=== PATIENT | female | born 1950 | race Caucasian/White ===

== ENCOUNTER 2020-06-12 09:21 | Outpatient (CLI) | payer MEDICARE, SELFPAY ==
--- NOTE | 2020-06-12 09:27 | MM_ITS ---
WS: [id number] BILATERAL DIGITAL SCREENING MAMMOGRAPHY WITH CAD CLINICAL INFORMATION: SCREENING HISTORY: Screening mammogram. No current complaints. COMPARISON: TECHNIQUE: Bilateral CC and MLO views. FINDINGS: Scattered fibroglandular densities bilaterally. No suspicious focal mass, asymmetry, calcifications, or architectural distortion. No evidence of malignancy. Stable punctate calcifications left breast. S table bilateral ovoid nodules previously demonstrated to represent cysts. MM/[place] [id number] IMPRESSION: BI-RADS: 2-Benign FOLLOW UP: 1 Year Follow-up Recommend return to annual screening mammography.
--- NOTE | 2020-06-12 14:18 | XR_ITS ---
WS: [id number] SCREENING DEXA SCAN [facility] CLINICAL INFORMATION: POST MENOPAUSAL COMPARISON: None. FINDINGS: The L1-L4 bone mineral density measures 1.786 g/cm2. This corresponds to a T score score of 5.0 and Z score of 5.8. Left femoral neck bone mineral density measures 1.184 g/cm2. This corresponds to a T score of 1.4 and Z score of 2.2. Right femoral neck bone mineral density measures 1.035 g/cm2. This corresponds to a T score 0.2of and Z score of 1.1. Mean femoral neck bone mineral density measures 1.110 g/cm2. This corresponds to a T score of 0.8 and Z score of 1.6. XR/XR DEXA axial skeleton* [id number] IMPRESSION: Normal bone mineralization. Patient's FRAX calculated 10 year probability for major osteoporotic fracture i s 7.4 % and osteoporotic hip fracture is 0.5%.
== END 2020-06-12 09:22 | disposition home or self-care (01) ==
LOC: RADSHAW 09:26
PROVIDERS: Family Provider Nurse Practitioner; PCP Nurse Practitioner; Visit Provider Nurse Practitioner
DX: Z12.31 Encounter for screening mammogram for malignant neoplasm of breast (principal); Z78.0 Asymptomatic menopausal state
CPT/HCPCS: 77067; 77080

== ENCOUNTER 2021-09-23 08:09 | Outpatient (CLI) | payer MEDICARE, SELFPAY ==
--- NOTE | 2021-09-23 08:16 | MM_ITS ---
WS: [id number] SCREENING 3D TOMOSYNTHESIS DIGITAL MAMMOGRAM WITH CAD HISTORY: SCREENING COMPARISON: 04/02/2018 ultrasound, 06/12/2020, 04/28/2019 and 03/16/2018 Bilateral CC and MLO views submitted. Computer aided detection analyzed. Breast composition: There are scattered areas of fibroglandular density. There is a well-circumscribe d mass measuring 10 x 11 mm in the anterior RIGHT breast. This mass is within the inferolateral quadr ant of the RIGHT breast. This is just below the nipple near 8:00. This mass has been present on prior studies but is larger today. MM/[place] [id number] IMPRESSION: BI-RADS: 0-Incomplete: Need additional imaging evaluation FOLLOW UP: Need Additional Imaging RIGHT breast ultrasound focused on the inferolateral quadrant. Focal nodule kirk r 8:00 has increased in size since the prior examination. This may be an enlarg ing cyst but should be further evaluated due to its increase in size.
== END 2021-09-23 08:10 | disposition home or self-care (01) ==
LOC: RADSHAW 08:13
PROVIDERS: PCP Nurse Practitioner; Visit Provider Nurse Practitioner
DX: Z12.31 Encounter for screening mammogram for malignant neoplasm of breast (principal)
CPT/HCPCS: 77063; 77067

== ENCOUNTER 2021-10-01 07:32 | Outpatient (CLI) | payer MEDICARE, SELFPAY ==
--- NOTE | 2021-10-01 08:14 | US_ITS ---
WS: [id number] ULTRASOUND RIGHT BREAST HISTORY: UNSPECIFIED LUMP IN UNSPECIFIED BREAST , RIGHT BREAST NODULE COMPARISON: 04/02/2018, mammogram 09/23/2021. TECHNIQUE: 2-D and Doppler. Ultrasound directed to the RIGHT breast at 8 o'clock. Approximately 1 cm from the nipple at 8:00 is a very minimally complex hypoechoic mass measuring 1.1 x 0.8 x 0.7 cm. There is through transmission. This does correspond in location and size to the mammographic abnormality. There is an additional daphne y small hypoechoic nodule at 8:00 with a maximum diameter of 0.5 cm. US/US breast RT limited* [id number] IMPRESSION: BI-RADS: 3-Probably Benign FOLLOW-UP: 6 Month Follow-up Recommend 6 month ultrasound follow-up of the mildly complex cyst in the RIGHT breast at 8:00. This larger cyst measuring 1.1 x 0.8 x 0.7 cm has increased in size since 2018. Minimally complex therefore recommend 6 month follow-up.
== END 2021-10-01 07:33 | disposition home or self-care (01) ==
LOC: RAD 07:35
PROVIDERS: PCP Nurse Practitioner; Visit Provider Nurse Practitioner
DX: N60.01 Solitary cyst of right breast (principal)
CPT/HCPCS: 76642

== ENCOUNTER 2022-03-31 07:32 | Outpatient (CLI) | payer MEDICARE, SELFPAY ==
--- NOTE | 2022-03-31 | US_ITS ---
WS: [id number] ULTRASOUND RIGHT BREAST HISTORY: SIX MONTH FOLLOW UP. CYST IN BREAST COMPARISON: 10/01/2021, 09/23/2021 TECHNIQUE: 2-D and Doppler. Ultrasound directed to the RIGHT breast at 8:00. Previously described minimally complex cyst is reide ntified at 1 cm from the nipple. Cyst measures 9 x 12 x 7 mm. Small amount of debris and small septat ion is reidentified. No increase in the amount of soft tissue. There is no increased vascularity. US/US breast RT limited* [id number] IMPRESSION: BI-RADS: 3-Probably Benign FOLLOW-UP: 6 Month Follow-up Patient to return in September 2022 for annual mammogram. Additional ultrasound of the RIGHT breast should be obtained of this complex cyst to document continued long-term stability.
== END 2022-03-31 07:33 | disposition home or self-care (01) ==
LOC: RAD 07:34
PROVIDERS: PCP Nurse Practitioner; Visit Provider Nurse Practitioner
DX: Z85.3 Personal history of malignant neoplasm of breast; Z09 Encounter for follow-up examination after completed treatment for conditions other than malignant neoplasm; N60.01 Solitary cyst of right breast
CPT/HCPCS: 76642

== ENCOUNTER 2022-09-26 08:37 | Outpatient (CLI) | payer MEDICARE, SELFPAY ==
--- NOTE | 2022-09-26 08:58 | MM_ITS ---
WS: [id number] DIAGNOSTIC BILATERAL DIGITAL BREAST TOMOSYNTHESIS MAMMOGRAPHY WITH CAD RIGHT breast ultrasound, limited HISTORY: Six-month follow-up complex cyst RIGHT breast. COMPARISON: 03/31/2022, 01/07/2016, 09/23/2021 and 04/28/2019 TECHNIQUE: Bilateral craniocaudad, mediolateral oblique, and mediolateral views are submitted with to mosjose and RODRIGO. Spot compression RIGHT CC. Computer aided detection utilized. Breast composition: There are scattered areas of fibroglandular density. Well-circumscribed nodule in the anterior medial RIGHT breast measures 10 mm. Not increased in size since the prior exams. No new nodule or mass. RIGHT breast ultrasound, limited. Ultrasound RIGHT breast near 8:00, 1 cm from the nipple demonstrates a hypoechoic mass with a thin se ptation previously described measuring 9 x 12 x 7 mm. No increase in size. There are a few additional small cysts in this location also. MM/[place] [id number] IMPRESSION: BI-RADS: 2-Benign FOLLOW UP: 1 Year Follow-up No increase in size minimally complex cystic mass in the RIGHT breast. Recommen d yearly mammograms. If this mass changes in appearance on the screening mammog bird additional imaging may be necessary.
== END 2022-09-26 08:38 | disposition home or self-care (01) ==
LOC: RAD 08:43
PROVIDERS: PCP Nurse Practitioner; Visit Provider Nurse Practitioner
DX: N60.01 Solitary cyst of right breast (principal)
CPT/HCPCS: 76642; 77062; G0279

== ENCOUNTER 2023-10-09 13:13 | Outpatient (CLI) | payer MEDICARE, SELFPAY ==
--- NOTE | 2023-10-09 13:22 | MM_ITS ---
WS: [id number] BILATERAL 3D TOMOSYNTHESIS DIGITAL SCREENING MAMMOGRAPHY WITH CAD CLINICAL INFORMATION: SCREENING HISTORY: Screening mammogram. No current complaints. COMPARISON: 2022 TECHNIQUE: Bilateral CC and MLO views. FINDINGS: Scattered fibroglandular densities bilaterally. No suspicious focal mass, asymmetry, calcifications, or architectural distortion. No evidence of malignancy. Incidental punctate calcifications LEFT breas t. MM/[place] [id number] IMPRESSION: BI-RADS: 2-Benign FOLLOW UP: 1 Year Follow-up Recommend return to annual screening mammography.
== END 2023-10-09 13:14 | disposition home or self-care (01) ==
LOC: RAD 13:17
PROVIDERS: PCP Nurse Practitioner Family; Visit Provider Nurse Practitioner Family
DX: Z12.31 Encounter for screening mammogram for malignant neoplasm of breast (principal)
CPT/HCPCS: 77063; 77067

== ENCOUNTER 2024-06-03 15:11 | Outpatient (CLI) | payer MEDICARE, SELFPAY ==
--- NOTE | 2024-06-03 15:14 | XR_ITS ---
WS: [id number] SCREENING DEXA SCAN [facility] CLINICAL INFORMATION: POSTMENOPAUSAL COMPARISON: 2020 FINDINGS: The L1-L4 bone mineral density measures 1.817 g/cm2. This corresponds to a T score score of 5.3 and Z score of 6.1. Left femoral neck bone mineral density measures 1.136 g/cm2. This corresponds to a T score of 1.0 and Z score of 2.0. Right femoral neck bone mineral density measures 1.048 g/cm2. This corresponds to a T score 0.3of and Z score of 1.3. Mean femoral neck bone mineral density measures 1.092 g/cm2. This corresponds to a T score of 0.7 and Z score of 1.7. XR/XR DEXA axial skeleton* [id number] IMPRESSION: Normal bone mineralization. Patient's FRAX calculated 10 year probability for major osteoporotic fracture i s 7.9% and osteoporotic hip fracture is 0.8%. Bone mineral density lumbar spine increased 1.7% Bone mineral density femoral necks decreased -1.6%
== END 2024-06-03 15:12 | disposition home or self-care (01) ==
LOC: RAD 15:12
PROVIDERS: PCP Nurse Practitioner Family; Visit Provider Nurse Practitioner Family
DX: Z13.820 Encounter for screening for osteoporosis (principal); Z78.0 Asymptomatic menopausal state
CPT/HCPCS: 77080

== ENCOUNTER 2024-10-19 08:44 | Outpatient (CLI) | payer MEDICARE, SELFPAY ==
--- NOTE | 2024-10-19 08:46 | MM_ITS ---
WS: [id number] BILATERAL SCREENING DIGITAL TOMOSYNTHESIS MAMMOGRAM WITH CAD HISTORY: SCREENING COMPARISON: 09/26/2022, 10/09/2023, 06/12/2020 Bilateral CC and MLO views with tomosynthesis and synthetic mammography submitted. Computer aided detection analyzed. Breast composition: There are scattered areas of fibroglandular density. No suspicious masses, microcalcifications or architectural distortion. 10 x 5 mm obscured mass is reidentified central to the nipple within the RIGHT breast. Noted to be a cyst on prior imaging studies with no increase in size. Benign calcifications LEFT breast. MM/MM scr BI tomosynthesis [id number] IMPRESSION: BI-RADS: 2 - Benign. FOLLOW UP: 1 Year Follow-up
== END 2024-10-19 08:45 | disposition home or self-care (01) ==
PROVIDERS: PCP Nurse Practitioner Family; Visit Provider Nurse Practitioner Family
DX: Z12.31 Encounter for screening mammogram for malignant neoplasm of breast (principal); R92.323 Mammographic fibroglandular density, bilateral breasts; N64.89 Other specified disorders of breast; R92.1 Mammographic calcification found on diagnostic imaging of breast
CPT/HCPCS: 77063; 77067